=== PATIENT | female | born 1985 ===

== ENCOUNTER 2021-12-26 08:28 | Outpatient (REF) | payer OTHER, MEDICAID, SELFPAY ==
[2021-12-26 08:48] LABS: MANUAL DIFF FLAG NO
[2021-12-26 09:09] LABS: Basophils Percent Auto 0.4 % (0-2); Eosinophils Percent Auto 0.6 % (0-4); Hematocrit 38.4 % (37.0-47.0); Hemoglobin 12.8 g/dl (12.0-16.0); Imm Gran Abs Auto 0.02 X10*3/uL (0.00-0.03); Imm Gran Pct Auto 0.3 % (0.0-0.4); Lymphocytes Absolute Auto 1.7 X10*3/uL (1.2-4.9); Lymphocytes Percent Auto 24.9 % (20-40); Mean Corpuscular HGB Conc 33.3 g/dl (31.0-35.0); Mean Corpuscular Hemoglobin 28.8 pg (27.0-33.0); Mean Corpuscular Volume 86.5 fL (80.0-98.0); Mean Platelet Volume 10.2 fL (9.4-12.3); Monocytes Absolute Auto 0.5 X10*3/uL (0.1-1.2); Monocytes Percent Auto 7.7 % (2-11); Neutrophils Absolute Auto 4.5 x10*3/uL (2.0-8.3); Neutrophils Percent Auto 66.1 % (45-73); Platelet Count 251 X10*3/uL (160-400); Red Blood Count 4.44 X10*6/uL (4.20-5.50); Red Cell Distribution Width 13.5 % (11.0-16.0); White Blood Count 6.8 X10*3/uL (4.8-10.8)
[2021-12-26 09:40] LABS: Alanine Aminotransferase 29 U/L (0-31); Albumin Level 4.6 g/dL (3.5-5.0); Alkaline Phosphatase 82 U/L (39-117); Anion Gap 12 (12-20); Aspartate Amino Transferase 47 U/L (5-31); Bilirubin Total 0.6 mg/dL (0.0-1.0); Blood Urea Nitrogen 9 mg/dL (9-16); Calcium 9.3 mg/dL (8.4-10.2); Carbon Dioxide 24 mmol/L (22-29); Chloride 103 mmol/L (96-108); Cholesterol 163 mg/dL; Estimated Glomerular Filt Rate > 60; Glucose Fasting 114 mg/dL (60-99); HDL Cholesterol 43 mg/dL; LDL Cholesterol Calculated 103 mg/dl; Potassium 4.3 mmol/L (3.3-5.1); Sodium 135 mmol/L (135-145); Total Protein 7.9 g/dL (6.5-8.0); Triglycerides 85 mg/dL
[2021-12-26 10:04] LABS: Thyroid Stimulating Hormone 1.57 uIU/mL (0.32-4.0); Vitamin D 25-OH Total 24.9 ng/mL (>30)
== END 2021-12-26 08:29 | disposition home or self-care (01) ==
LOC: HO.LAB 08:28
PROVIDERS: PCP Internal Medicine; Visit Provider Internal Medicine
DX: Z00.00 Encounter for general adult medical examination without abnormal findings (principal); E55.9 Vitamin D deficiency, unspecified; E66.9 Obesity, unspecified; Z68.33 Body mass index [BMI] 33.0-33.9, adult
CPT/HCPCS: 36415; 80053; 80061; 82306; 84443; 85025

== ENCOUNTER 2022-09-16 07:41 | Observation (INO) | payer OTHER, MEDICAID, SELFPAY ==
[2022-09-16] VITALS (13 sets, daily range): BP systolic 120–147; BP diastolic 80–92; PULSE 93–125; RESP 14–18; TEMP 36.3–37.5; O2SAT 94–99; BMI 32.9
--- NOTE | ~2022-09-16 | US_ITS ---
EXAMINATION: US ABDOMEN LIMITED CLINICAL INFORMATION: Right upper quadrant pain. COMPARISON: None available. TECHNIQUE: Real-time imaging of the right upper quadrant abdominal viscera. FINDINGS: PANCREAS: Normal. LIVER: Liver echotexture is increased. There is low-attenuation in the liver adjacent to the gallbladder questionable for areas of focal fatty sparing versus possible reactive changes in the liver from cholecystitis. No focal hepatic lesion. There is no intrahepatic biliary duct dilatation seen. GALLBLADDER: The gallbladder is normal in size. There are gallstones. The gallbladder wall appears thickened and may be edematous. Gallbladder wall thickness measures up to 4 mm. The generation engineering technologist reports the patient is tender over the gallbladder. Question reactive changes in the liver/edema versus focal fatty sparing. COMMON BILE DUCT: Normal in caliber measuring 0.4 cm in diameter. RIGHT KIDNEY: Normal. No hydronephrosis. No renal calculi or focal parenchymal lesions. The kidney measures 11.7 cm in maximum dimension. FREE FLUID: None. US/US abdomen limited IMPRESSION: Gallstones and question acute cholecystitis. Fatty liver.
--- NOTE | 2022-09-16 07:55 | MHC.EDTECH ---
This PCT assisted PT to bed 17. PT changed into a pt gown and socks. PT vitals obtained and pt left in position of comfort with call mendoza by her side.
--- NOTE | 2022-09-16 08:14 | PC.NURSE ---
Pt a&ox4, airway open and patent, no difficulty/labored breathing. Pt lung sounds clr and equal bilaterally. Heart sounds normal. Bowel sounds present all arnold. Abdomen soft, tender. No edema.
--- NOTE | 2022-09-16 08:22 | ED.GENADULT ---
HPI - General Adult General Chief complaint: Abdominal Pain Stated complaint: R flank pain Time Seen by Provider: 09/16/22 08:22 Source: patient Mode of arrival: ambulatory Limitations: no limitations History of Present Illness HPI narrative: Patient is a 36 year old assigned female at with no reported medical history presenting to the emergency department today with right upper quadrant abdominal pain. Patient states that for the last 2 days she has had right upper quadrant abdominal pain that is significantly worse when she lays down and when she eats. Patient denies any dizziness, lightheadedness, fever, chills, blurry vision, double vision, loss of vision, chest pain, difficulty breathing, shortness of breath, back pain, night sweats, pain with urination, increased urinary frequency, increased urinary urgency, blood in her urine or stool, syncope or a near syncopal episode, recent trauma or falls, bowel incontinence, bladder incontinence, bowel retention, bladder retention, or any other complaints at this time. Onset (ago): day(s) (2) Location: abdomen Radiation: non-radiation Severity: mild Severity scale (1-10): 2 Quality: dull Pain Consistency: constant Relieving factors: none Exacerbating factors: none Associated symptoms: nausea/vomiting Treatments prior to arrival: none Related Data Home Medications Medication Instructions Recorded Confirmed No Known Home Meds 10/21/21 10/21/21 Allergies Allergy/AdvReac Type Severity Reaction Status Date / Time No Known Allergies Allergy Verified 10/21/21 08:54 Review of Systems Constitutional: Constitutional: Reports no additional constitutional complaints, Denies chills, Denies fever(s) and Denies night sweats Eyes: Eyes: Reports no additional eye complaints, Denies blurry vision, Denies change in vision, Denies diplopia, Denies eye discharge, Denies loss of vision and Denies eye pain ENT: Denies dizziness Cardiovascular: Cardiovascular: Reports no additional cardiovascular complaints, Denies chest pain, Denies lightheadedness, Denies Loss of Consciousness and Denies dyspnea Respiratory: Respiratory: Reports no additional respiratory complaints and Denies dyspnea Gastrointestinal: Gastrointestinal: Reports no additional gastrointestinal complaints, Reports abdominal pain, Denies melena, Denies hematochezia, Denies change in bowel habits, Denies change in stool character, Reports nausea and Denies vomiting Genitourinary: Genitourinary: Denies hematuria, Denies urinary frequency, Denies dysuria, Denies urinary incontinence, Denies urinary hesitancy and Denies urinary urgency Musculoskeletal: Musculoskeletal: Reports no additional musculoskeletal complaints, Denies numbness and Denies tingling Neurologic: Denies dizziness, Denies loss of vision, Denies numbness and Denies tingling Psychiatric: Psychiatric: Reports no additional psychiatric complaints Endocrine: Endocrine: Reports no additional endocrine complaints Hematologic/Lymphatic: Hematologic/Lymphatic: Reports no additional hematologic/lymphatic complaints Allergic/Immunologic: Allergic/Immunologic: Reports no additional allergic/immunologic complaints [facility] Past Medical History Attestation statement: The following information was validated with the patient. Source: old records reviewed and nursing notes reviewed Medical History Class 1 obesity with body mass index (BMI) of 33.0 to 33.9 in adult Neck pain Physical exam Surgical History No pertinent past surgical history Family History Family History Mother Lupus Father Skin cancer Family/Other Mental health disorder Social History Social History Housing: Apartment Alcohol intake: never Patient Tobacco Use Status: Never used Tobacco Smoked in Last 30 Days: No e-Cigarette/Vaping Use: Never Used Second Hand Smoke Exposure: No Use of substances other than those prescribed or required for medical reasons: No Advance Directives: No Advance Directives Information Provided: No Patient : No service: No Current occupational status: employed Current occupational exposures/hazards: No Cognitive needs: No Hearing needs: No Vision needs: No Physical Exam ED Vital Signs: Vital Signs - 24 hr 09/16/22 07:58 09/16/22 09:31 09/16/22 10:43 Temperature 98.5 F Pulse Rate 98 93 Respiratory Rate 16 16 14 Blood Pressure 131/80 127/85 Pulse Oximetry 99 97 Oxygen Delivery Method Room Air Room Air 09/16/22 12:04 09/16/22 13:51 Temperature 99.3 F Pulse Rate 105 H 99 Respiratory Rate 14 16 Blood Pressure 135/85 130/80 Pulse Oximetry 98 99 Oxygen Delivery Method Room Air Room Air BMI result Body Mass Index 32.9 Const General: cooperative, no acute distress, alert and awake Nutritional Appearance: well nourished Orientation/consciousness: patient oriented x3 Limitations: no limitations HENMT Head: Yes normal to inspection and Yes atraumatic Ears: hearing grossly normal bilaterally and external ears normal General nose exam: Normal external nose present, no nasal discharge noted and no epistaxis Face and sinus: Yes normal facial exam, No abrasion and No laceration Mouth: Normal oral and palatal mucosa present, no drooling and no muffled voice Eyes General: appearance normal, both eyes and all related structures Periorbital: periorbital findings normal Eyelids: Yes eyelids normal Conjunctivae: conjunctivae normal Pupils: Equal, round and reactive pupils present EOM: EOMs intact bilaterally Neck Neck: Yes normal visual inspection, Yes full ROM and Yes no lymphadenopathy Chest Chest palpation & inspection: normal inspection of the chest Resp Effort & Inspection: normal respiratory effort and able to speak in complete sentences Auscultation: clear to auscultation bilaterally Cardio Rate: regular rate Rhythm: regular rhythm GI Inspection: Yes normal to inspection Palpation (GI): Soft to palpation, not firm, Tenderness to palpation present (GI) in the RUQ and Lind's sign positive and no guarding Neuro General: patient oriented x3 and moves all extremities Cranial nerves: Yes Equal, round and reactive pupils present Cognition (Neuro): normal cognition Motor exam (neuro): 5/5 motor strength present throughout Sensory Exam: Normal double simultaneous stimulation for sensation Coordination: [id number] test normal Extrem General: Yes normal to inspection, Yes full ROM and Yes capillary refill normal Psych Appearance: grossly normal Mental Status: mental status grossly normal Affect: normal affect Attitude: cooperative Thought process: Normal thought process present Thought content: Normal thought content present Insight: Good insight present (Psych) Medications Administered Discontinued Medications Generic Name Dose Route Start Last Admin Trade Name Freq PRN Reason Stop Dose Admin Al Hydroxide/Mg Hydroxide 15 ml 09/16/22 08:25 09/16/22 09:33 Magnesium Hydrox/Alum Hydrox 30 Ml Oral.Susp PO 09/16/22 08:26 15 ml ONCE ONE Administration Morphine Sulfate 4 mg 09/16/22 08:25 09/16/22 09:31 Morphine Sulfate 4 Mg/Ml Cartridge IVPUSH 09/16/22 08:26 4 mg ONCE ONE Administration Protocol Ondansetron HCl 4 mg 09/16/22 08:25 09/16/22 09:30 Ondansetron Hcl 4 Mg/2 Ml Vial IVPUSH 09/16/22 08:26 4 mg ONCE ONE Administration Pantoprazole Sodium 40 mg 09/16/22 08:25 09/16/22 09:30 Pantoprazole Sodium 40 Mg/10 Ml Vial IVPUSH 09/16/22 08:26 40 mg ONCE ONE Administration Medical Decision Making Medical Decision Making [facility] Narrative: Patient is a 36 year old assigned female at with no reported medical history presenting to the emergency department today with right upper quadrant abdominal pain. Patient's physical exam showed tenderness to palpation of the right upper abdominal quadrant. Patient's blood work showed a slightly elevated WBC count but was otherwise unremarkable. Patient's urine showed no acute process. Patient's gallbladder US showed evidence of an acute cholecystitis. I spoke to the surgical team who agreed to admission. I explained my physical exam findings as well as all test results to the patient. I answered all questions asked by the patient. Patient received IV pain medication which she stated helped her symptoms significantly. Patient verbalized agreement and understanding with this treatment plan and admission. Differential Diagnosis Differential Diagnoses: The differential diagnosis associated with the presentation includes cholecystitis Consult Healthcare Provider Management of the patient was discussed with: Auto Transmission Technician (spoke to the surgical team per the MDM portion of this chart) Lab Data [facility] Lab Attestation statement: I reviewed the patient's lab results. 09/16/22 09:00 09/16/22 09:00 Labs: Lab Results 09/16/22 09/16/22 09/16/22 Range/Units 08:24 08:48 09:00 WBC 12.1 H (4.8-10.8) X10*3/uL RBC 4.55 (4.20-5.50) X10*6/uL Hgb 13.1 (12.0-16.0) g/dl Hct 39.4 (37.0-47.0) % MCV 86.6 (80.0-98.0) fL MCH 28.8 (27.0-33.0) pg MCHC 33.2 (31.0-35.0) g/dl RDW 13.3 (11.0-16.0) % Plt Count 286 (160-400) X10*3/uL MPV 10.4 (9.4-12.3) fL Immature Gran % (Auto) 0.3 (0.0-0.4) % Neut % (Auto) 84.9 H (45-73) % Lymph % (Auto) 9.2 L (20-40) % [place] % (Auto) 5.3 (2-11) % Eos % (Auto) 0.1 (0-4) % Baso % (Auto) 0.2 (0-2) % Lymph # (Auto) 1.1 L (1.2-4.9) X10*3/uL [place] # (Auto) 0.6 (0.1-1.2) X10*3/uL Eos # (Auto) 0.0 (0.0-0.4) X10*3/uL Baso # (Auto) 0.0 (0.0-0.2) X10*3/uL Abs Immat Gran (auto) 0.04 H (0.00-0.03) X10*3/uL Absolute Neuts (auto) 10.3 H (2.0-8.3) x10*3/uL Absolute Nucleated RBC 0.000 (0.0-0.012) X10*3/uL Nucleated RBC % (auto) 0.0 (0.0-0.2) /100WBC Sodium (135-145) mmol/L Potassium (3.3-5.1) mmol/L Chloride (96-108) mmol/L Carbon Dioxide (22-29) mmol/L Anion Gap (12-20) BUN (9-16) mg/dL Creatinine (0.5-1.4) mg/dL Estim Creat Clear Calc Estimated GFR Random Glucose (60-115) mg/dL Calcium (8.4-10.2) mg/dL Magnesium (1.6-2.6) mg/dL Total Bilirubin (0.0-1.0) mg/dL AST (5-31) U/L ALT (0-31) U/L Alkaline Phosphatase (39-117) U/L Total Protein (6.5-8.0) g/dL Albumin (3.5-5.0) g/dL Beta HCG, Quant mIU/mL Urine Color Yellow Urine Appearance Clear Urine pH 7.0 (5.0-9.0) Ur Specific [place] 1.015 (1.005-1.025) Urine Protein Trace (Neg-Trace) mg/dL Urine Glucose (UA) Negative (Negative) mg/dL Urine Ketones Negative (Negative) mg/dL Urine Blood Trace H (Negative) Urine Nitrite Negative (Negative) Ur Leukocyte Esterase Negative (Negative) Urine RBC 6-10 H (0-2) /HPF Urine WBC 0-5 (0-5) /HPF Ur Squamous Epith Cells 0-2 (0-2) /HPF Urine Bacteria None Seen (None Seen) Hyaline Casts 0-2 (0-2) /LPF COVID-19 (DAVIS) Negative (Negative) COVID-19 Clin Com See Note 09/16/22 09/16/22 Range/Units 09:00 09:00 WBC (4.8-10.8) X10*3/uL RBC (4.20-5.50) X10*6/uL Hgb (12.0-16.0) g/dl Hct (37.0-47.0) % MCV (80.0-98.0) fL MCH (27.0-33.0) pg MCHC (31.0-35.0) g/dl RDW (11.0-16.0) % Plt Count (160-400) X10*3/uL MPV (9.4-12.3) fL Immature Gran % (Auto) (0.0-0.4) % Neut % (Auto) (45-73) % Lymph % (Auto) (20-40) % [place] % (Auto) (2-11) % Eos % (Auto) (0-4) % Baso % (Auto) (0-2) % Lymph # (Auto) (1.2-4.9) X10*3/uL [place] # (Auto) (0.1-1.2) X10*3/uL Eos # (Auto) (0.0-0.4) X10*3/uL Baso # (Auto) (0.0-0.2) X10*3/uL Abs Immat Gran (auto) (0.00-0.03) X10*3/uL Absolute Neuts (auto) (2.0-8.3) x10*3/uL Absolute Nucleated RBC (0.0-0.012) X10*3/uL Nucleated RBC % (auto) (0.0-0.2) /100WBC Sodium 137 (135-145) mmol/L Potassium 4.2 (3.3-5.1) mmol/L Chloride 104 (96-108) mmol/L Carbon Dioxide 24 (22-29) mmol/L Anion Gap 13 (12-20) BUN 6 L (9-16) mg/dL Creatinine 0.83 (0.5-1.4) mg/dL Estim Creat Clear Calc 100.0 Estimated GFR > 60 Random Glucose 122 H (60-115) mg/dL Calcium 9.3 (8.4-10.2) mg/dL Magnesium 2.1 (1.6-2.6) mg/dL Total Bilirubin 0.8 (0.0-1.0) mg/dL AST 14 (5-31) U/L ALT 16 (0-31) U/L Alkaline Phosphatase 81 (39-117) U/L Total Protein 7.7 (6.5-8.0) g/dL Albumin 4.6 (3.5-5.0) g/dL Beta HCG, Quant < 2 mIU/mL Urine Color Urine Appearance Urine pH (5.0-9.0) Ur Specific [place] (1.005-1.025) Urine Protein (Neg-Trace) mg/dL Urine Glucose (UA) (Negative) mg/dL Urine Ketones (Negative) mg/dL Urine Blood (Negative) Urine Nitrite (Negative) Ur Leukocyte Esterase (Negative) Urine RBC (0-2) /HPF Urine WBC (0-5) /HPF Ur Squamous Epith Cells (0-2) /HPF Urine Bacteria (None Seen) Hyaline Casts (0-2) /LPF COVID-19 (DAVIS) (Negative) COVID-19 Clin Com Independent Interpretation I performed an independent interpretation of an: CT Scan Interpretation: My interpretation is in agreement with the radiologist's impression of this imaging study. EXAMINATION: US ABDOMEN LIMITED CLINICAL INFORMATION: Right upper quadrant pain. COMPARISON: None available. TECHNIQUE: Real-time imaging of the right upper quadrant abdominal viscera. FINDINGS: PANCREAS: Normal. LIVER: Liver echotexture is increased. There is low-attenuation in the liver adjacent to the gallbladder questionable for areas of focal fatty sparing versus possible reactive changes in the liver from cholecystitis. No focal hepatic lesion. There is no intrahepatic biliary duct dilatation seen. GALLBLADDER: The gallbladder is normal in size. There are gallstones. The gallbladder wall appears thickened and may be edematous. Gallbladder wall thickness measures up to 4 mm. The sonography technologist reports the patient is tender over the gallbladder. Question reactive changes in the liver/edema versus focal fatty sparing. COMMON BILE DUCT: Normal in caliber measuring 0.4 cm in diameter. RIGHT KIDNEY: Normal. No hydronephrosis. No renal calculi or focal parenchymal lesions. The kidney measures 11.7 cm in maximum dimension. FREE FLUID: None. US/US abdomen limited IMPRESSION: Gallstones and question acute cholecystitis. Fatty liver. Dictated By: Vee Loo MD Signed By: Electronically signed by Vee Loo MD 09/16/22 5562 Critical Care Time Critical Care Time Critical Care Time: Yes Total Critical Care Time: 30 Attestation: I spent 30 minutes of Critical Care Time with this patient. This does not include time spent on separately reported billable procedures. Discharge Plan Discharge Clinical Impression: Cholecystitis Patient Disposition: Admitted As Inpatient Prescriptions: No Action No Known Home Meds
[2022-09-16 08:33] LABS: Appearance Urine Clear; Color Urine Yellow; Glucose Urine UA Negative (Negative); Leukocyte Esterase Urine Negative (Negative); Nitrite Urine Negative (Negative); Specific Gravity - Urine 1.015 (1.005-1.025); UMIC TRIGGER UACC YES; Urine Blood Trace (Negative); Urine Ketones Negative (Negative); Urine Protein Trace mg/dL (Neg-Trace)
[2022-09-16 08:38] LABS: Bacteria Urine None Seen (None Seen); Hyaline Casts Urine 0-2 /LPF (0-2); Squamous Epithelial Cell Urine 0-2 /HPF (0-2); WBC Urine 0-5 /HPF (0-5)
[2022-09-16 09:04] LABS: MANUAL DIFF FLAG NO
[2022-09-16 09:15] LABS: IDNOW Serial# BCCEAD1C
[2022-09-16 09:16] LABS: COVID-19 Test Negative (Negative)
[2022-09-16 09:21] LABS: Alanine Aminotransferase 16 U/L (0-31); Albumin Level 4.6 g/dL (3.5-5.0); Alkaline Phosphatase 81 U/L (39-117); Anion Gap 13 (12-20); Aspartate Amino Transferase 14 U/L (5-31); Bilirubin Total 0.8 mg/dL (0.0-1.0); Blood Urea Nitrogen 6 mg/dL (9-16); Calcium 9.3 mg/dL (8.4-10.2); Carbon Dioxide 24 mmol/L (22-29); Chloride 104 mmol/L (96-108); Estimated Glomerular Filt Rate > 60; Glucose Random 122 mg/dL (60-115); Magnesium 2.1 mg/dL (1.6-2.6); Potassium 4.2 mmol/L (3.3-5.1); Sodium 137 mmol/L (135-145); Total Protein 7.7 g/dL (6.5-8.0)
[2022-09-16 09:27] LABS: Basophils Percent Auto 0.2 % (0-2); Eosinophils Percent Auto 0.1 % (0-4); Hematocrit 39.4 % (37.0-47.0); Hemoglobin 13.1 g/dl (12.0-16.0); Imm Gran Abs Auto 0.04 X10*3/uL (0.00-0.03); Imm Gran Pct Auto 0.3 % (0.0-0.4); Lymphocytes Absolute Auto 1.1 X10*3/uL (1.2-4.9); Lymphocytes Percent Auto 9.2 % (20-40); Mean Corpuscular HGB Conc 33.2 g/dl (31.0-35.0); Mean Corpuscular Hemoglobin 28.8 pg (27.0-33.0); Mean Corpuscular Volume 86.6 fL (80.0-98.0); Mean Platelet Volume 10.4 fL (9.4-12.3); Monocytes Absolute Auto 0.6 X10*3/uL (0.1-1.2); Monocytes Percent Auto 5.3 % (2-11); Neutrophils Absolute Auto 10.3 x10*3/uL (2.0-8.3); Neutrophils Percent Auto 84.9 % (45-73); Platelet Count 286 X10*3/uL (160-400); Red Blood Count 4.55 X10*6/uL (4.20-5.50); Red Cell Distribution Width 13.3 % (11.0-16.0); White Blood Count 12.1 X10*3/uL (4.8-10.8)
[2022-09-16 09:30] LABS: HCG Quantitative < 2 mIU/mL
[2022-09-16] MEDS: ondansetron HCL 4 MG/2 ML VIAL IVPUSH (09:30)
[2022-09-16] MEDS: Pantoprazole Sodium 40 MG/10 ML VIAL IVPUSH (09:30)
[2022-09-16] MEDS: Morphine Sulfate 4 MG/ML CARTRIDGE IVPUSH ×2 (09:31→14:35)
[2022-09-16] MEDS: Magnesium Hydrox/Alum Hydrox 30 ML ORAL.SUSP 15 ML PO (09:33)
--- NOTE | 2022-09-16 14:59 | MHC.SHP ---
Pre-Procedural Eval Section A Date of Service: 09/16/22 The patient is an INPATIENT: Yes Changes since office visit: No Cold of Flu in the past 2 weeks, No New Medical Problems, No Changes in Medication and No Patient answered all questions Section B Chief Complaint: ACUTE CHOLECYSTITIS Allergies: Allergies Allergy/AdvReac Type Severity Reaction Status Date / Time No Known Allergies Allergy Verified 10/21/21 08:54 Plan I have reviewed the history and physical and performed a pertinent physical examination on my patient. No changes have occurred unless specified. Time Spent With Patient Time: Total time managing care of this patient today ____ minutes.
--- NOTE | 2022-09-16 15:01 | PM.HPGS ---
History of Present Illness History of Present Illness Date of Service: 09/16/22 Chief complaint: ACUTE CHOLECYSTITIS Narrative: Meli Batista is a 36 year old female who presented with RUQ abd pain. She developed acute onset of RUQ pain Thursday night. She described the pain as sharp and at first was intermittent and then became constant. It radiated to her right upper back. It gradually worsened in severity and she developed nausea and had one episode of vomiting this morning and decided to seek care in the ED. She denies provoking or alleviating factors. She reports a similar episode of pain 2 months ago which resolved on its own. She denies fevers, chills, change in skin or urine color. She has hx of 2 c sections. Work up in the ED included ABD US which showed gallstones, gallbladder wall thickening with tenderness over the gallbladder with the ultrasound probe. She has a leukocytosis of 12.1. BMP, LFTs WNL. She feels marginally improved right now following pain medication. Review of Systems Constitutional: Constitutional: Denies chills, Denies fever(s) and Denies malaise ENT: Denies dizziness Cardiovascular: Cardiovascular: Denies chest pain, Denies palpitations and Denies dyspnea Respiratory: Respiratory: Denies cough and Denies dyspnea Gastrointestinal: Gastrointestinal: Reports as per HPI and Denies change in stool character Genitourinary: Genitourinary: Denies hematuria and Denies dysuria Integumentary/Breasts: Skin/Breast: Denies rash and Denies jaundice Neurologic: Denies dizziness Endocrine: Endocrine: Denies palpitations [facility] Past Medical History Medical History (Updated 09/16/22 @ 15:17 by Katlyn Urbina PA-C) Class 1 obesity with body mass index (BMI) of 33.0 to 33.9 in adult Neck pain Physical exam Family History Family History Mother Lupus Father Skin cancer Family/Other Mental health disorder Surgical History Surgical History (Updated 09/16/22 @ 15:14 by Katlyn Urbina PA-C) History of section No pertinent past surgical history Social History Social History Housing: Apartment Alcohol intake: never Patient Tobacco Use Status: Never used Tobacco e-Cigarette/Vaping Use: Never Used Second Hand Smoke Exposure: No service: No Current occupational status: employed Current occupational exposures/hazards: No Cognitive needs: No Hearing needs: No Vision needs: No Meds Allergies Allergy/AdvReac Type Severity Reaction Status Date / Time No Known Allergies Allergy Verified 10/21/21 08:54 Active Medications: Current Medications Acetaminophen (Acetaminophen 325 Mg Tablet) 650 mg PO Q6H PRN PRN Reason: Pain, Mild (Pain Scale 1-3) Sodium Chloride (Ns) 1,000 mls @ 100 mls/hr IVCONT .Q10H [facility] Cefotetan Disodium 2 gm/ (Sodium Chloride) 50 mls @ 100 mls/hr IV PREOP ONE Stop: 09/16/22 15:10 Morphine Sulfate (Morphine Sulfate 4 Mg/Ml Cartridge) 4 mg IVPUSH Q4H PRN; Protocol PRN Reason: Pain, Severe (Pain Scale 7-10) Ondansetron HCl (Ondansetron Hcl 4 Mg/2 Ml Vial) 4 mg IVPUSH Q8H PRN PRN Reason: Nausea and Vomiting Oxycodone HCl (Oxycodone Hcl Immed Release 5 Mg Tablet) 5 mg PO Q6H PRN PRN Reason: Pain, Severe (Pain Scale 7-10) Pharmacy Consult (Consult Rx Perform Med Rec) 1 each MISCELLANE ONCE PRN PRN Reason: Consult order Sodium Chloride (0.9 % Sodium Chloride Flush 3 Ml Syringe) 3 ml IVFLUSH QSHIFT [facility] Home Medications Medication Instructions Recorded Confirmed Last Taken Type No Known Home Meds 10/21/21 10/21/21 Unknown History Physical Exam Vital Signs: Vital Signs: Last Vital Signs Temp 99.3 F 09/16/22 13:51 Pulse 99 09/16/22 13:51 Resp 16 09/16/22 13:51 BP 130/80 09/16/22 13:51 Pulse Ox 99 09/16/22 13:51 O2 Del Method Room Air 09/16/22 13:51 BMI result Body Mass Index 32.9 Const: General: comfortable, no acute distress and alert Orientation/consciousness: patient oriented x3 Resp: Effort & Inspection: normal respiratory effort Cardio: Rate: regular rate GI: Inspection: Yes normal to inspection and No distended Palpation (GI): Soft to palpation, Tenderness to palpation present (GI) in the RUQ and Lind's sign positive, no guarding and not rigid Percussion: Yes normal to percussion Skin: General skin exam: no rashes or lesions noted Neuro: General: patient oriented x3 and moves all extremities Results Results Labs: Short CBC 09/16/22 Range/Units 09:00 WBC 12.1 H (4.8-10.8) X10*3/uL Hgb 13.1 (12.0-16.0) g/dl Hct 39.4 (37.0-47.0) % Plt Count 286 (160-400) X10*3/uL BMP 09/16/22 09:00 Sodium 137 Potassium 4.2 Chloride 104 Carbon Dioxide 24 BUN 6 L Creatinine 0.83 Calcium 9.3 Liver Function 09/16/22 Range/Units 09:00 Total Bilirubin 0.8 (0.0-1.0) mg/dL AST 14 (5-31) U/L ALT 16 (0-31) U/L Alkaline Phosphatase 81 (39-117) U/L Albumin 4.6 (3.5-5.0) g/dL Urine 09/16/22 Range/Units 08:24 Urine Color Yellow Urine Appearance Clear Urine pH 7.0 (5.0-9.0) Ur Specific [place] 1.015 (1.005-1.025) Urine Protein Trace (Neg-Trace) mg/dL Urine Glucose (UA) Negative (Negative) mg/dL Assessment and Plan (1) Acute calculous cholecystitis: Status: Acute Plan 36 year old female with RUQ pain since Thursday with RUQ tenderness with positive lind sign on exam, leukocytosis, and gallstones and gallbladder wall thickening on ABD US, consistent with acute cholecystitis. She was admitted to the surgical service for further treatment of the acute cholecystitis. Treatment options were discussed and it was recommended to proceed with laparoscopic cholecystectomy, possible open. Technique of the procedure, risks including infection, bleeding, injury to surrounding organs such as liver, bowel, vasculature, bile ducts, and benefits and alternatives were discussed. She agrees to proceed with surgery. She is added onto the OR schedule for today. She is kept NPO, on IVF and PRN analgesics as needed. All questions were answered. Time Spent With Patient Time: Total time managing care of this patient today ____ minutes. Quality Stroke Does the patient have a stroke diagnosis?: No VTE Prior VTE?: No VTE Risk Level:: Surgical - low VTE Device Contraindication: N/A - Device Ordered VTE Drug Contraindication: Treatment Not Indicated Procedures Date of Service Date of Service: 09/16/22
--- NOTE | 2022-09-16 15:08 | HO.ANESPROP2 ---
[facility] Active Problems Active Problems: All Active Problems (Updated 09/16/22 @ 14:46 by MIKE Perdue) Cholecystitis (Acute) Neck pain (Acute) Class 1 obesity with body mass index (BMI) of 33.0 to 33.9 in adult (Acute) Physical exam (Acute) Past Medical History Medical History Class 1 obesity with body mass index (BMI) of 33.0 to 33.9 in adult Neck pain Physical exam Family History Family History Mother Lupus Father Skin cancer Family/Other Mental health disorder Family history of problems with anesthesia: No Surgical History Surgical History No pertinent past surgical history History of Problems with Anesthesia: No Social History Social History Housing: Apartment Alcohol intake: never Patient Tobacco Use Status: Never used Tobacco Smoked in Last 30 Days: No e-Cigarette/Vaping Use: Never Used Second Hand Smoke Exposure: No Use of substances other than those prescribed or required for medical reasons: No Advance Directives: No Advance Directives Information Provided: No Patient : No service: No Current occupational status: employed Current occupational exposures/hazards: No Cognitive needs: No Hearing needs: No Vision needs: No Meds Allergies Allergy/AdvReac Type Severity Reaction Status Date / Time No Known Allergies Allergy Verified 10/21/21 08:54 Active Medications: Current Medications Acetaminophen (Acetaminophen 325 Mg Tablet) 650 mg PO Q6H PRN PRN Reason: Pain, Mild (Pain Scale 1-3) Sodium Chloride (Ns) 1,000 mls @ 100 mls/hr IVCONT .Q10H JOSEPH Cefotetan Disodium 2 gm/ (Sodium Chloride) 50 mls @ 100 mls/hr IV PREOP ONE Stop: 09/16/22 15:10 Morphine Sulfate (Morphine Sulfate 4 Mg/Ml Cartridge) 4 mg IVPUSH Q4H PRN; Protocol PRN Reason: Pain, Severe (Pain Scale 7-10) Ondansetron HCl (Ondansetron Hcl 4 Mg/2 Ml Vial) 4 mg IVPUSH Q8H PRN PRN Reason: Nausea and Vomiting Oxycodone HCl (Oxycodone Hcl Immed Release 5 Mg Tablet) 5 mg PO Q6H PRN PRN Reason: Pain, Severe (Pain Scale 7-10) Pharmacy Consult (Consult Rx Perform Med Rec) 1 each MISCELLANE ONCE PRN PRN Reason: Consult order Sodium Chloride (0.9 % Sodium Chloride Flush 3 Ml Syringe) 3 [facility] Home Medications Medication Instructions Recorded Confirmed Last Taken Type No Known Home Meds 10/21/21 10/21/21 Unknown History Exam Exam Date and Time: September 16, 2022 1508 Height,Weight and Vital Signs: Height 5 ft 4 in Weight 87.09 kg Last Vital Signs Temp 99.3 F 09/16/22 13:51 Pulse 99 09/16/22 13:51 Resp 16 09/16/22 13:51 BP 130/80 09/16/22 13:51 Pulse Ox 99 09/16/22 13:51 O2 Del Method Room Air 09/16/22 13:51 Pertinent Lab Results Pertinent Lab Results: Laboratory Tests 09/16/22 09/16/22 09/16/22 08:24 08:48 09:00 WBC 12.1 H RBC 4.55 Hgb 13.1 Hct 39.4 MCV 86.6 MCH 28.8 MCHC 33.2 RDW 13.3 Plt Count 286 MPV 10.4 Immature Gran % (Auto) 0.3 Neut % (Auto) 84.9 H Lymph % (Auto) 9.2 L [place] % (Auto) 5.3 Eos % (Auto) 0.1 Baso % (Auto) 0.2 Lymph # (Auto) 1.1 L [place] # (Auto) 0.6 Eos # (Auto) 0.0 Baso # (Auto) 0.0 Abs Immat Gran (auto) 0.04 H Absolute Neuts (auto) 10.3 H Absolute Nucleated RBC 0.000 Nucleated RBC % (auto) 0.0 Sodium Potassium Chloride Carbon Dioxide Anion Gap BUN Creatinine Estim Creat Clear Calc Estimated GFR Random Glucose Calcium Magnesium Total Bilirubin AST ALT Alkaline Phosphatase Total Protein Albumin Beta HCG, Quant Urine Color Yellow Urine Appearance Clear Urine pH 7.0 Ur Specific [place] 1.015 Urine Protein Trace Urine Glucose (UA) Negative Urine Ketones Negative Urine Blood Trace H Urine Nitrite Negative Ur Leukocyte Esterase Negative Urine RBC 6-10 H Urine WBC 0-5 Ur Squamous Epith Cells 0-2 Urine Bacteria None Seen Hyaline Casts 0-2 COVID-19 (DAVIS) Negative COVID-19 Clin Com See Note 09/16/22 09/16/22 09:00 09:00 WBC RBC Hgb Hct MCV MCH MCHC RDW Plt Count MPV Immature Gran % (Auto) Neut % (Auto) Lymph % (Auto) [place] % (Auto) Eos % (Auto) Baso % (Auto) Lymph # (Auto) [place] # (Auto) Eos # (Auto) Baso # (Auto) Abs Immat Gran (auto) Absolute Neuts (auto) Absolute Nucleated RBC Nucleated RBC % (auto) Sodium 137 Potassium 4.2 Chloride 104 Carbon Dioxide 24 Anion Gap 13 BUN 6 L Creatinine 0.83 Estim Creat Clear Calc 100.0 Estimated GFR > 60 Random Glucose 122 H Calcium 9.3 Magnesium 2.1 Total Bilirubin 0.8 AST 14 ALT 16 Alkaline Phosphatase 81 Total Protein 7.7 Albumin 4.6 Beta HCG, Quant < 2 Urine Color Urine Appearance Urine pH Ur Specific [place] Urine Protein Urine Glucose (UA) Urine Ketones Urine Blood Urine Nitrite Ur Leukocyte Esterase Urine RBC Urine WBC Ur Squamous Epith Cells Urine Bacteria Hyaline Casts COVID-19 (DAVIS) COVID-19 Clin Com Airway Mallampati Class: III TM Dist: >3cm Neck ROM: Full Assessment and Plan Assessment Anesthesia Assessment: Anesthesia Plan Discussed and Chart Reviewed Final Anesthetic Review Family History of Problems with Anesthesia: No History of Problems with Anesthesia: No ASA Class: II and Emergency Final Preanesthetic Review: No Changes in Pt Med Stat, Meds/Allgs Chart Reviewed, Consent Obtained/Reviewed and Anes Risks/Benef Reviewed Patient Risk: Intermediate Procedure Risk: Intermediate Anesthetic Plan Anesthetic Plan: GA Disposition: Standard PACU
--- NOTE | 2022-09-16 15:12 | PC.NURSE ---
report received from NAYELI Pastor As this RN was taking report, OR staff came to take pt. This RN called report to PACU.
--- NOTE | 2022-09-16 17:02 | P.OP_ITS ---
Operative Note Operative Note Date of Service: 09/16/22 Narrative: Preoperative diagnosis: [] acute cholecystitis Postop diagnosis: [] acute phlegmonous cholecystitis Procedure [] laparoscopic cholecystectomy Surgeon: Paul Harkins Clinical Sales Consultant: [] Carlitos arreguin Type of Anesthesia: [] general Indication for surgery: [] symptomatic right upper quadrant gallbladder pain Findings: [] phlegmonous, edematous, turgid, markedly intrahepatic gallbladder. Multiple gallstones in the gallbladder. Omental lesions tothe gallbladder Patient was brought to the operating room, placed on the operating table in a supine position, and after an adequate level of general anesthesia was induced, the patient's abdomen which was moderately corpulent was prepped and draped in usual sterile fashion. Using an infraumbilical curvilinear incision, Wesley technique was used to infiltrate the abdominal cavity to 15 mm of CO2. Upper midline and subcostal ports were placed under direct laparoscopic view, and the patient placed in reverse Trendelenburg position, and tilted to the left. The markedly phlegmonous, edematous gallbladder had to be decompressed with an aspirating device because it was unable to be grasped otherwise. Laparoscopic graspers were used to retract the gallbladder superiorly and laterally and the omental adhesions were swept off the gallbladder and the hilum approached. The cystic duct artery and cystic duct were reach identified, circumferentially skeletonized, and each traced directly to the gallbladder. Critical view was obtained. Each was clipped proximally x2, distally x1, and transected. Gallbladder which was very intrahepatic was then cauterized from the gallbladder fossa using electro Bovie. Specimen was placed in an Endo-Catch bag, and retrieved through the umbilical port. Operative site an abdominal cavity were copiously irrigated and secured for hemostasis. All ports were removed under direct laparoscopic view. Wounds were closed in the following manner; umbilical wound has fascia reapproximated using interrupted 0 Vicryl sutures. Skin was were closed using subcuticular 4-0 Vicryl sutures followed by Steri-Strips and sterile dressings. Wounds were infiltrated with 0.5% Marcaine at completion. Sponge, needle, and instrument counts were reported to be correct. Patient tolerated procedure well emerged anesthesia stable condition. EBL minimal
[2022-09-16] MEDS: 0.9 % Sodium Chloride 1,000 ML 100 ML IVCONT (18:28)
[2022-09-16] MEDS: oxyCODONE HCl Immed Release 5 MG TABLET PO (21:47)
[2022-09-16] MEDS: Acetaminophen 325 MG TABLET 650 MG PO (21:48)
[2022-09-16] MEDS: 0.9 % Sodium Chloride Flush 3 ML SYRINGE IVFLUSH (21:49)
[2022-09-17] VITALS: BP 124/77; PULSE 92; RESP 16; TEMP 36.4; O2SAT 97
[2022-09-17 03:30] VITALS: BP 118/68; PULSE 98; RESP 16; TEMP 36; O2SAT 98
[2022-09-17] MEDS: oxyCODONE HCl Immed Release 5 MG TABLET PO (04:35)
[2022-09-17 07:10] VITALS: BP 121/74; PULSE 88; RESP 16; TEMP 37.1; O2SAT 97
--- NOTE | 2022-09-17 08:40 | PM.PNGS ---
Subjective Subjective Date of Service: 09/17/22 Interval history: Feeling well this morning. Tolerating diet without N/V. Having some gas pains, incisional pain mild and she is comfortable. OOB and ambulating. Physical Exam Vital Signs: Vital Signs: Last Vital Signs Temp 98.7 F 09/17/22 07:10 Pulse 88 09/17/22 07:10 Resp 16 09/17/22 07:10 BP 121/74 09/17/22 07:10 Pulse Ox 97 09/17/22 07:10 O2 Del Method Room Air 09/17/22 07:10 O2 Flow Rate 2 09/16/22 18:04 BMI result Body Mass Index 32.9 Const: General: comfortable, no acute distress and alert Orientation/consciousness: patient oriented x3 Resp: Effort & Inspection: normal respiratory effort GI: Inspection: No distended and Yes incision (dressings c/d/i) Palpation (GI): Soft to palpation, Tenderness to palpation present (GI) (mild incisional), no guarding and not rigid Percussion: Yes normal to percussion Skin: General skin exam: no rashes or lesions noted Neuro: General: patient oriented x3 and moves all extremities Objective Data Active Medications Acetaminophen (Acetaminophen 325 Mg Tablet) 650 mg PO Q6H PRN PRN Reason: Pain, Mild (Pain Scale 1-3) Last Admin: 09/16/22 21:48 Dose: 650 mg Documented By: HARIKA Sodium Chloride (Ns) 1,000 mls @ 100 mls/hr IVCONT .Q10H JOSEPH Last Infusion: 09/17/22 04:36 Dose: 0 mls/hr Documented By: HARIKA Morphine Sulfate (Morphine Sulfate 4 Mg/Ml Cartridge) 4 mg IVPUSH Q4H PRN; Protocol PRN Reason: Pain, Severe (Pain Scale 7-10) Ondansetron HCl (Ondansetron Hcl 4 Mg/2 Ml Vial) 4 mg IVPUSH Q8H PRN PRN Reason: Nausea and Vomiting Ondansetron HCl (Ondansetron Hcl 4 Mg/2 Ml Vial) 4 mg IVPUSH ONCE PRN PRN Reason: Nausea and Vomiting Oxycodone HCl (Oxycodone Hcl Immed Release 5 Mg Tablet) 5 mg PO Q6H PRN PRN Reason: Pain, Severe (Pain Scale 7-10) Last Admin: 09/17/22 04:35 Dose: 5 mg Documented By: HARIKA Pharmacy Consult (Consult Rx Perform Med Rec) 1 each MISCELLANE ONCE PRN PRN Reason: Consult order Sodium Chloride (0.9 % Sodium Chloride Flush 3 Ml Syringe) 3 ml IVFLUSH QSHIFT [facility] Last Admin: 09/17/22 07:09 Dose: Not Given Documented By: OLGA Non-Admin Reason: IV Running Labs 09/16/22 09:00 09/16/22 09:00 Labs: Laboratory Results - last 24 hr 09/16/22 09/16/22 09/16/22 08:24 08:48 09:00 MCV 86.6 MCH 28.8 MCHC 33.2 RDW 13.3 Plt Count 286 MPV 10.4 Immature Gran % (Auto) 0.3 Neut % (Auto) 84.9 H Lymph % (Auto) 9.2 L [place] % (Auto) 5.3 Eos % (Auto) 0.1 Baso % (Auto) 0.2 Lymph # (Auto) 1.1 L [place] # (Auto) 0.6 Eos # (Auto) 0.0 Baso # (Auto) 0.0 Abs Immat Gran (auto) 0.04 H Absolute Neuts (auto) 10.3 H Absolute Nucleated RBC 0.000 Nucleated RBC % (auto) 0.0 Anion Gap Estim Creat Clear Calc Estimated GFR Random Glucose Calcium Magnesium Total Bilirubin AST ALT Alkaline Phosphatase Total Protein Albumin Beta HCG, Quant Urine RBC 6-10 H Urine WBC 0-5 Ur Squamous Epith Cells 0-2 Urine Bacteria None Seen Hyaline Casts 0-2 COVID-19 (DAVIS) Negative COVID-19 Clin Com See Note 09/16/22 09/16/22 09:00 09:00 MCV MCH MCHC RDW Plt Count MPV Immature Gran % (Auto) Neut % (Auto) Lymph % (Auto) White % (Auto) Eos % (Auto) Baso % (Auto) Lymph # (Auto) [place] # (Auto) Eos # (Auto) Baso # (Auto) Abs Immat Gran (auto) Absolute Neuts (auto) Absolute Nucleated RBC Nucleated RBC % (auto) Anion Gap 13 Estim Creat Clear Calc 100.0 Estimated GFR > 60 Random Glucose 122 H Calcium 9.3 Magnesium 2.1 Total Bilirubin 0.8 AST 14 ALT 16 Alkaline Phosphatase 81 Total Protein 7.7 Albumin 4.6 Beta HCG, Quant < 2 Urine RBC Urine WBC Ur Squamous Epith Cells Urine Bacteria Hyaline Casts COVID-19 (DAVIS) COVID-19 Clin Com Procedures Date of Service Date of Service: 09/17/22 Progress Note: A&P Assessment and plan (1) Acute calculous cholecystitis: Status: Acute (2) S/P laparoscopic cholecystectomy: Status: Acute Plan 36 year old female admitted for acute cholecystitis now POD #1 s/p lap CCY. She is doing well post op and tolerating solid diet with good pain control. VSS. Abd exam very benign with appropriate post op tenderness, c/d/i dressings. Feels ready for discharge. Stable for discharge to home today. F/u in office in [address] Harkins. Time Spent With Patient Time: Total time managing care of this patient today ____ minutes. Quality Stroke Does the patient have a stroke diagnosis?: No VTE Prior VTE?: No VTE Risk Level:: Surgical - low VTE Device Contraindication: N/A - Device Ordered VTE Drug Contraindication: Treatment Not Indicated
--- NOTE | 2022-09-17 14:07 | HO.POSTANES ---
Post Anesthesia Evaluation Post Anesthesia Evaluation Vital Signs: Vital Signs Temp Pulse Resp BP Pulse Ox O2 Del Method 09/17/22 07:10 98.7 F 88 16 121/74 97 Room Air 09/17/22 03:30 96.8 F 98 16 118/68 98 Room Air Anesthesia: General Endotracheal-GETA Mental Status: Awake Pain Control: Satisfactory Nausea/Vomiting: None Hydration: Adequate Anesthesia-Related Issues: No Anes. Related Issues
--- NOTE | 2022-09-18 07:41 | PM.DS ---
DS: Providers Provider Date of Service: 09/17/22 Date of admission: 09/16/22 14:41 Primary care physician: Khadra Tucker MD Attending physician on admission: Trav Harkins DS: Diagnosis Discharge Diagnosis (1) Acute calculous cholecystitis: Status: Acute (2) S/P laparoscopic cholecystectomy: Status: Acute DS: Summary Hospital Course Hospital Course: HPI AT ADMISSION: Meli Batista is a 36 year old female who presented with RUQ abd pain. She developed acute onset of RUQ pain Thursday night. She described the pain as sharp and at first was intermittent and then became constant. It radiated to her right upper back. It gradually worsened in severity and she developed nausea and had one episode of vomiting this morning and decided to seek care in the ED. She denies provoking or alleviating factors. She reports a similar episode of pain 2 months ago which resolved on its own. She denies fevers, chills, change in skin or urine color. She has hx of 2 c sections. Work up in the ED included ABD US which showed gallstones, gallbladder wall thickening with tenderness over the gallbladder with the ultrasound probe. She has a leukocytosis of 12.1. BMP, LFTs WNL. She feels marginally improved right now following pain medication. HOSPITAL COURSE: She was admitted to the surgical service for further treatment of acute cholecystitis. It was recommended to proceed with laparoscopic cholecystectomy, possible open. She elected to proceed and was added onto the OR schedule for that day. On 09/16/22, a laparoscopic cholecystectomy was performed by Dr. Harkins without immediate complication. The patient tolerated the procedure well and was admitted to the medical/surgical floor for observation. She had an uncomplicated recovery course. On POD #1, she felt improved with mild incisional soreness and adequate pain control. She was tolerating a solid diet without nausea or vomiting. She was ambulating without difficulty. She had a benign abd exam with clean/intact dressings. She felt ready for discharge. She was discharged to home on 09/17/22 in stable condition. Status at Discharge Functional status at discharge: independent ambulation Overall status at discharge: patient is progressing back to baseline Time Spent with Patient Time attestation: Total time managing care of this patient today ____ minutes. Discharge coordination time: Less than 30 minutes Quality: Safe Use of Opioids Does Pt have an Active Cancer Diagnosis on the Problem List?: No Quality: Stroke Does the patient have a stroke diagnosis?: No Physical Exam Vital Signs: Vital Signs: Last Vital Signs Temp 98.7 F 09/17/22 07:10 Pulse 88 09/17/22 07:10 Resp 16 09/17/22 07:10 BP 121/74 09/17/22 07:10 Pulse Ox 97 09/17/22 07:10 O2 Del Method Room Air 09/17/22 07:10 O2 Flow Rate 2 09/16/22 18:04 BMI result Body Mass Index 32.9 Const: General: comfortable, no acute distress and alert Orientation/consciousness: patient oriented x3 Resp: Effort & Inspection: normal respiratory effort GI: Inspection: No distended and Yes incision (dressings c/d/i) Palpation (GI): Soft to palpation, Tenderness to palpation present (GI) (mild), no guarding and not rigid Percussion: Yes normal to percussion Skin: General skin exam: no rashes or lesions noted and no jaundice Neuro: General: patient oriented x3 and moves all extremities DS: Data Data Completed and Pending Pending studies at discharge: Pending at discharge 09/16/22 17:17 Surgical [PTH] Routine Discharge Plan Discharge Patient Disposition: Home, Self-Care Discharge Diagnosis: acute cholecystitis s/p laparoscopic cholecystectomy Referrals: Khadra Lopez MD [Primary Care Provider] - 1 Week Trav Harkins MD [Physician] - 1 Week Discharge Medications: New docusate sodium [Colace] 100 mg capsule 100 mg PO BID PRN (Reason: constipation) Qty: 30 0RF oxycodone 5 mg tablet 5 mg PO Q4H PRN (Reason: pain (scale score 7-10)) Qty: 20 0RF Rx Instructions: Partial Fill upon patient request. Discharge Orders: Discharge Order (Routine); Ordered 09/17/22 Ordered By: Katlyn Urbina Diet: Low fat, low cholesterol Activity on Discharge: No heavy lifting Stand Alone Forms: Patient Portal Discharge page Activity Restrictions/Additional Instructions: Apply an ice pack for short intervals (20 minutes on, followed by at least 20 minutes off) for the first 2 days. Do not apply heat. Do not use creams, lotions, or topical antibiotics. These can cause infection or allergic reaction. Ok to shower 48 hours after your surgery. Remove dressings in 2 days and replace as needed. You have steri strips (small white cloth strips) covering your incision- these will fall off ~1 week. Follow up in office with Dr. Harkins in 1 week. ([phone]) No heavy lifting (>10lbs) or strenuous activity! Call Your Doctor If: -Your temperature exceeds 101.5? F -You experience excessive pain or swelling -You have an unexpected reaction to medication -You have excessive bleeding -You experience continued vomiting/nausea -Your incision begins to separate -Your incision shows signs of infection such as increased redness, swelling, excessive pain, drainage (light blood or clear fluid is normal) or heat Care Plan Goals: Return to baseline health and resume normal activities following recovery period. Health Concerns: acute cholecystitis Plan of Treatment: s/p laparoscopic cholecystectomy f/u in office in 1 week Assessment: Doing well post op Discharge Date/Time: 09/17/22 10:59
== END 2022-09-17 10:59 | disposition home or self-care (01) ==
LOC: HO.ED 14:46 → HO.EDOVER 14:53 → HO.S3 17:42
PROVIDERS: Physician Assistant Medical; Surgery; Admitting Provider Physician Assistant Surgical; Emergency Provider Emergency Medicine Emergency Medical Services; PCP Internal Medicine; Visit Provider Physician Assistant Surgical
PROC: 0FT44ZZ Resection of Gallbladder, Percutaneous Endoscopic Approach (ICD-10-PCS; CPT 47562; principal; 2022-09-16 15:30)
DX: K80.00 Calculus of gallbladder with acute cholecystitis without obstruction (principal); R10.11 Right upper quadrant pain
CPT/HCPCS: 47562; 36415; 76705; 80053; 81001; 83735; 84702; 85025; 87635; 88304; 96361; 96374; 96375; 96376; 99221; 99284; J0131; J1100; J1170; J2250; J2270; J2405; J2795; J3010

== ENCOUNTER → 2022-09-24 08:59 | Outpatient (BNVA) | payer OTHER, MEDICAID, SELFPAY | PROVIDERS: PCP Internal Medicine; Visit Provider Surgery | DX: Z13.89 Encounter for screening for other disorder (principal) ==

== ENCOUNTER 2023-08-25 09:41 | Outpatient (AMB) | payer OTHER, MEDICAID, SELFPAY ==
[2023-08-25 09:41] VITALS: BP 120/70; PULSE 87; TEMP 36.7; O2SAT 99; BMI 30.6
--- NOTE | 2023-08-25 09:41 | MHC.OFFWIV ---
Intake Vital Signs 08/25/23 09:41 Height 5 ft 4 in Weight 178 lb BMI 30.6 BP 120/70 Blood Pressure Location Lt brachial Position Sitting Pulse 87 Pulse Source Pulse Oximeter Temp 98.0 F Temp Source Temporal Artery Scan Pulse Oximetry (%) 99 Oxygen Delivery Method Room Air Intake Visit Reasons: EP pain, burning when urinating Intake Note: pt is here today for pain burning when urinating started yesterday Patient Tobacco Use Status: Never used Tobacco Allergies No Known Allergies Allergy (Verified 08/25/23 10:06) Medication List - Last Reconciled 08/25/23 by VLADISLAV Durham phenazopyridine (Pyridium) 100 mg PO TID PRN sulfamethoxazole-trimethoprim 800-160 mg (Bactrim DS) 1 tab PO Q12H Do you need a note to return to daycare/school/sports/work: Yes HPI HPI Comments History of Present Illness Details Patient is a 37-year-old female in today for sick visit. She has no significant past medical history. She states that for the past day she has developed symptoms of burning while urination and increased frequency. She does state that she had episodes of chills last night and temporary lower back pain. Did not try any medication for relief. In office UA dipstick demonstrated UTI. [facility] Medical History Neck pain Class 1 obesity with body mass index (BMI) of 33.0 to 33.9 in adult Physical exam Surgical History S/P laparoscopic cholecystectomy (09/16/22) History of section Family History Mother Lupus Father Skin cancer Family/Other Mental health disorder Social History Housing: Apartment Alcohol intake: never Patient Tobacco Use Status: Never used Tobacco e-Cigarette/Vaping Use: Never Used Second Hand Smoke Exposure: No service: No Current occupational status: employed Current occupational exposures/hazards: No Cognitive needs: No Hearing needs: No Vision needs: No Review of Systems Const All systems reviewed & are unremarkable except as noted in HPI and below Reports as per HPI Musc Reports as per HPI Physical Exam Vital Signs: Last Vital Signs Temp 98.0 F 08/25/23 09:41 Pulse 87 08/25/23 09:41 BP 120/70 08/25/23 09:41 Pulse Ox 99 08/25/23 09:41 Oxygen Delivery Method Room Air 08/25/23 09:41 BMI result Body Mass Index 30.6 Vital signs reviewed stable. Const Other: Appearance: Alert.? Oriented X3.? No acute distress.? Head: Normocephalic, atraumatic CVS: Normal heart rate and rhythm.? Pulses normal.? Respiratory: No respiratory distress.? Breath sounds normal.? Abdomen: + Suprapubic tenderness? Back: No midline tenderness, no C-spine tenderness, full range of motion, + mild CVA tenderness bilaterally Neuro: Oriented X 3.? No motor deficit.? No sensory deficit. CN 2-12 intact Results AMB Urinalysis, Automated UA Leukoctes 15 Jordana/uL Last Edit by NINFA Castaneda on 08/25/23 09:55 UA Nitrite Negative Last Edit by Esthela Garner CCM on 08/25/23 09:55 UA Urobilinogen 0.2 mg/dL Last Edit by Esthela Garner CCM on 08/25/23 09:55 UA Protein 0 mg/dL Last Edit by Esthela Garner CCM on 08/25/23 09:55 UA pH 7.0 Last Edit by Esthela Garner CCM on 08/25/23 09:55 UA Blood 200 Abdias/uL Last Edit by Esthela Garner CCM on 08/25/23 09:55 UA Specific [place] 1.005 Last Edit by Esthela Garner CCM on 08/25/23 09:55 UA Ketone Negative Last Edit by NINFA Castaneda on 08/25/23 09:55 UA Bilirubin 0 mg/dL Last Edit by Esthela Garner CCM on 08/25/23 09:55 UA Glucose 0 mg/dL Last Edit by Esthela Garner CCM on 08/25/23 09:55 Results Reviewed Results Reviewed: Laboratory Last Values Urine pH (Auto) 7.0 08/25/23 09:54 Specific [place] (Auto) 1.005 08/25/23 09:54 Urine Protein (Auto) 0 mg/dL 08/25/23 09:54 Glucose (UA)(Auto) 0 mg/dL 08/25/23 09:54 Urine Ketones (Auto) Negative 08/25/23 09:54 Urine Blood (Auto) 200 Abdias/uL 08/25/23 09:54 Urine Nitrite (Auto) Negative 08/25/23 09:54 Urine Bilirubin (Auto) 0 mg/dL 08/25/23 09:54 Urine Urobilinogen (Auto) 0.2 mg/dL 08/25/23 09:54 Leukocyte Esterase (Auto) 15 Jordana/uL 08/25/23 09:54 Assessment & Plan Assessment & Plan (1) UTI (urinary tract infection): Comment: Patient will be given Bactrim, and peridium to be taken as directed. Patient has been educated on the side effects of these medications. Patient has been educated on signs of worsening symptoms and when to return back to the walk-in clinic or when to present to the emergency room. Code(s): N39.0 - Urinary tract infection, site not specified Qualifiers: Urinary tract infection type: site unspecified Hematuria presence: with hematuria Qualified Code(s): N39.0 - Urinary tract infection, site not specified; R31.9 - Hematuria, unspecified Plan: Take your medications as prescribed. If you were prescribed antibiotics today, it is important that you take your medication to their entirety, do not skip any doses, do not finish them early. Follow-up with your primary care provider this week. Return to the emergency department with new or worsening symptoms. Such as fevers, chills, chest pain, shortness of breath, nausea, vomiting, dizziness, headache, vision changes, lethargy In case of emergency call 911 Plan Follow-up PCP. Orders: Orders AMB Urinalysis Automated Today Z13.9 - Encounter for screening, unspecified Medications: New phenazopyridine (Pyridium) 100 mg PO TID PRN 14 tabs 0RF pain sulfamethoxazole-trimethoprim 800-160 mg (Bactrim DS) 1 tab PO Q12H 6 tabs 0RF Coding Level of Care Code Est Pt Level 3 (65856) Diagnoses Urinary tract infection with hematuria, site unspecified N39.0; R31.9 Urinary tract infection type: site unspecified Hematuria presence: with hematuria Time Spent (min) 21
== END 2023-08-25 10:30 | disposition home or self-care (01) ==
PROVIDERS: PCP Internal Medicine; Visit Provider Nurse Practitioner Primary Care
DX: N39.0 Urinary tract infection, site not specified (principal); R31.9 Hematuria, unspecified
CPT/HCPCS: 81003; 99213

== ENCOUNTER 2024-01-27 11:03 | Outpatient (AMB) | payer OTHER, MEDICAID, SELFPAY ==
[2024-01-27 11:11] VITALS: BP 110/70; BMI 31.8
--- NOTE | 2024-01-27 11:11 | MHC.PC.OV ---
Vital Signs 01/27/24 11:11 Height 5 ft 4 in Weight 185 lb BMI 31.8 BP 110/70 Blood Pressure Location Lt brachial Position Sitting Intake Visit Reasons: Physical Exam Intake Note: Patient here for a physical exam [employer] Required: No Accompanied by: Self / Same As Patient Allergies No Known Allergies Allergy (Verified 01/27/24 11:16) Medication List - Last Reconciled 01/27/24 by Khadra Tucker MD No Known Home Meds Tobacco use date assessed: 01/27/24 Dental Screening Dental Screen Date: 01/27/24 Did you have a dental visit in the last 12 months?: Yes Did you have a dental problem in the last 6 months where you did not have access to dental care?: No Was dental information given to patient?: Patient has dentist HPI HPI Comments History of Present Illness Details This is a 38-year-old female that comes for her physical exam. Pap smear done 2019. She complains of hair loss and neck pain that has been bothering her for few months. [facility] Medical History Neck pain Class 1 obesity with body mass index (BMI) of 33.0 to 33.9 in adult Physical exam Surgical History S/P laparoscopic cholecystectomy (09/16/22) History of section Family History Mother Lupus Father Skin cancer Family/Other Mental health disorder Social History Housing: Apartment Alcohol intake: never Patient Tobacco Use Status: Never used Tobacco e-Cigarette/Vaping Use: Never Used Second Hand Smoke Exposure: No service: No Current occupational status: employed Current occupational exposures/hazards: No Cognitive needs: No Hearing needs: No Vision needs: No Questionnaire PHQ-9 Over the last 2 weeks, how often have you been bothered by any of the following problems? 1. Little interest or pleasure in doing things: not at all 2. Feeling down, depressed, or hopeless: not at all 3. Trouble falling or staying asleep, or sleeping too much: not at all 4. Feeling tired or having little energy: not at all 5. Poor appetite or overeating: not at all 6. Feeling bad about yourself - or that you are a failure or have let yourself or your family down: not at all 7. Trouble concentrating on things, such as reading the newspaper or watching television: not at all 8. Moving or speaking so slowly that other people could have noticed. Or the opposite - being so fidgety or restless that you have been moving around a lot more than usual: not at all 9. Thoughts that you would be better off or of hurting yourself in some way: not at all Total score: 0 Depression Screening Interpretation: Negative Depression Screening Done: Yes 17135 - PHQ-9 Billing: Yes Source: Developed by Drs. Vinny Diego, Dee Larios, Chance Marcano and colleagues, with an educational mary kay from [employer]. Thrive Questionnaire Date Thrive assessed: 01/27/24 I am a: Patient What is your living situation today?: I have a steady place to live Within the past 12 months, did the food you bought not last and you didn't have the money to get more?: Never true Within the past 12 months, did you worry whether your food would run out before you got money to buy more?: Never true Do you have trouble paying for medicines?: No Do you have trouble getting transportation to medical appointments?: No Do you have trouble paying your heating and electricity bill?: No Do you have trouble taking care of your child, family member or friend?: No Do you have trouble with day-to-day activities such as bathing, preparing meals, shopping, managing finances, etc.?: No Are you currently unemployed and looking for a job?: No Are you interested in more education?: No Please select the resources that you would like help with: None Currently or been in a relationship where the following occur: No concerns reported THRIVE Score: 0 AUDIT C Alcohol Use Questionnaire (AUDIT-C) 1. How often do you have a drink containing alcohol?: Never Total Score: 0 Score Reviewed/Action Taken: No PATY-7 AMB Questionnaire PATY-7 Date PATY - 7 assessed: 01/27/24 Feeling nervous, anxious, or on edge: 0 = Not at all Not being able to stop or control worryin = Not at all Worrying too much about different things: 0 = Not at all Trouble relaxin = Not at all Being so restless that it is hard to sit still: 0 = Not at all Becoming easily annoyed or irritable: 0 = Not at all Feeling afraid as if something awful might happen: 0 = Not at all Total PATY-7 score (0-4 normal; 5-9 mild; 10-14 moderate; 15-21 severe): 0 Source: Developed by Drs. Vinny Diego, Dee Larios, Chance Marcano and colleagues, with an educational mary kay from [employer]. PATY-7 Assessment Billing PATY-7 Assessment Tool: PATY-7 Assessment 78484 Review of Systems Const All systems reviewed & are unremarkable except as noted in HPI and below Card Denies chest pain at rest, Denies chest pain with activity, Denies edema, Denies irregular heart rhythm, Denies claudication, Denies dyspnea, Denies dyspnea on exertion, Denies orthopnea, Denies paroxysmal nocturnal dyspnea and Denies slow heart rate Resp Denies cough, Denies dyspnea and Denies dyspnea on exertion GI Denies abdominal pain, Denies change in bowel habits, Denies excessive flatus, Denies nausea and Denies vomiting Denies urinary incontinence, Denies urinary hesitancy and Denies urinary urgency Musc Denies abnormal gait, Denies atrophy, Denies deformity and Denies limited range of motion Skin/Breast Denies bleeding lesions, Denies changing lesions and Denies rash Neuro Denies abnormal gait, Denies behavioral changes and Denies lack of coordination Psych Denies behavioral changes Physical exam (Primary Care) Vital Signs: Last Vital Signs BP 110/70 01/27/24 11:11 BMI result Body Mass Index 31.8 BMI Assessment/Plan discussion: High BMI High, discussed plan: lifestyle, weight reduction, dietary and physical activity Tobacco/Smoking Status: Tobacco use Status Tobacco use date assessed 01/27/24 01/27/24 11:14 Patient Tobacco Use Status Never used Tobacco 01/27/24 11:14 e-Cigarette/Vaping Use Never Used 01/27/24 11:14 PHQ-9: PHQ-9 Score PHQ-9: Total score 0 01/27/24 11:19 Depression Screening Interpretation: Negative Thrive Assessment: Date of Thrive Assessment Date Thrive assessed 01/27/24 01/27/24 11:16 Currently or been in a relationship where the following occur: No concerns reported [facility] Head: Yes normal to inspection, Yes normocephalic and Yes atraumatic Ears: external ears normal Eyes General: appearance normal, both eyes and all related structures Eyelids: Yes eyelids normal Conjunctivae: conjunctivae normal Neck Neck: Yes normal visual inspection and Yes supple Resp Effort & Inspection: normal respiratory effort Auscultation: clear to auscultation bilaterally Cardio Jugular venous distension: no JVD Rate: regular rate Rhythm: regular rhythm Heart sounds: S1 normal heart sound present and S2 normal heart sound present GI Inspection: Yes normal to inspection Palpation (GI): Soft to palpation and nontender Auscultation: normal bowel sounds Skin General skin exam: no rashes or lesions noted Neuro General: no focal motor deficits Extrem General: Yes full ROM Psych Appearance: grossly normal Assessment and Plan Assessment & Plan (1) Physical exam: Code(s): Z00.00 - Encounter for general adult medical examination without abnormal findings Plan: Repeat in a year. (2) Neck pain: Code(s): M54.2 - Cervicalgia Plan: Start physical therapy. (3) Hair loss: Code(s): L65.9 - Nonscarring hair loss, unspecified Plan: Referred to dermatology. Orders: Orders Complete Blood Count Auto Diff Today D64.9 - Anemia, unspecified IRON PROFILE Today D64.9 - Anemia, unspecified Comprehensive [place]. Panel Fast Today Z00.00 - Encounter for general adult medical examination without abnormal findings Thyroid Stimulating Hormone Today L65.9 - Nonscarring hair loss, unspecified Lipid Panel Today Z00.00 - Encounter for general adult medical examination without abnormal findings PT Evaluation and Treatment Today M54.2 - Cervicalgia Referrals Dermatology Referral L65.9 - Nonscarring hair loss, unspecified Coding Level of Care Code Est Pt Level 3 (43631) Est Pt Prev Care 18-39y(15158) Diagnoses Physical exam Z00.00 Neck pain M54.2 Hair loss L65.9 Additional Codes PATY-7 Assessment Billing - PATY-7 Assessment Tool: PATY-7 Assessment 07535 ([id number]) Time Spent (min) 33
== END 2024-01-27 11:24 | disposition home or self-care (01) ==
PROVIDERS: PCP Internal Medicine; Visit Provider Internal Medicine
DX: Z00.00 Encounter for general adult medical examination without abnormal findings (principal); M54.2 Cervicalgia; L65.9 Nonscarring hair loss, unspecified
CPT/HCPCS: 99213; 99395

== ENCOUNTER 2024-09-15 11:29 | Outpatient (AMB) | payer BC, SELFPAY ==
[2024-09-15 11:32] VITALS: BP 126/70; PULSE 96; RESP 16; TEMP 36.8; O2SAT 99; BMI 32.7
--- NOTE | 2024-09-15 11:32 | MHC.PC.OV ---
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: No Accompanied by: Self / Same As Patient Allergies No Known Allergies Allergy (Verified 09/15/24 11:45) Medication List - Last Reconciled 09/15/24 by TABITHA Valdez albuterol sulfate 90 mcg/actuation 2 puffs inhalation Q4-6H PRN Tobacco use date assessed: 09/15/24 Dental Screening Dental Screen Date: 09/15/24 Did you have a dental visit in the last 12 months?: No Did you have a dental problem in the last 6 months where you did not have access to dental care?: No Was dental information given to patient?: Patient has dentist HPI asthma HPI Details The patient is 38 year old female presenting with concern of asthma Reports that she had asthma a child and it is resurfacing now reports that she is using her rescue inhaler every 4hours at time She is also using another family member nebulizer treatment she reports coughing, sob, wheezing, chest tightness intermittently The patient went to the urgent care on 09/01/24 and was given benzonatate 200 mg for cough and albuterol rescue inhaler Patient symptoms are unchanged. Reports new pet dog and hx of being allergic to her cat The patient has heart burn very infrequent. Denies sick contact, she was the first one in her household to be sick . [facility] Medical History Neck pain Class 1 obesity with body mass index (BMI) of 33.0 to 33.9 in adult Physical exam Surgical History S/P laparoscopic cholecystectomy (09/16/22) History of section Family History Mother Lupus Father Skin cancer Family/Other Mental health disorder Social History Housing: Apartment Alcohol intake: never Patient Tobacco Use Status: Never used Tobacco e-Cigarette/Vaping Use: Never Used Second Hand Smoke Exposure: No service: No Current occupational status: employed Current occupational exposures/hazards: No Cognitive needs: No Hearing needs: No Vision needs: No Questionnaire PHQ-9 Over the last 2 weeks, how often have you been bothered by any of the following problems? 1. Little interest or pleasure in doing things: not at all 2. Feeling down, depressed, or hopeless: not at all 3. Trouble falling or staying asleep, or sleeping too much: not at all 4. Feeling tired or having little energy: not at all 5. Poor appetite or overeating: not at all 6. Feeling bad about yourself - or that you are a failure or have let yourself or your family down: not at all 7. Trouble concentrating on things, such as reading the newspaper or watching television: not at all 8. Moving or speaking so slowly that other people could have noticed. Or the opposite - being so fidgety or restless that you have been moving around a lot more than usual: not at all 9. Thoughts that you would be better off or of hurting yourself in some way: not at all Total score: 0 Depression Screening Interpretation: Negative Depression Screening Done: Yes 59868 - PHQ-9 Billing: Yes Source: Developed by Drs. Vinny Diego, Dee Larios, Chance Marcano and colleagues, with an educational mary kay from [employer]. Thrive Questionnaire Date Thrive assessed: 09/15/24 I am a: Patient What is your living situation today?: I have a steady place to live Within the past 12 months, did the food you bought not last and you didn't have the money to get more?: Never true Within the past 12 months, did you worry whether your food would run out before you got money to buy more?: Never true Do you have trouble paying for medicines?: No Do you have trouble getting transportation to medical appointments?: No Do you have trouble paying your heating and electricity bill?: No Do you have trouble taking care of your child, family member or friend?: No Do you have trouble with day-to-day activities such as bathing, preparing meals, shopping, managing finances, etc.?: No Are you currently unemployed and looking for a job?: No Are you interested in more education?: No Please select the resources that you would like help with: None Currently or been in a relationship where the following occur: No concerns reported THRIVE Score: 0 AUDIT C Alcohol Use Questionnaire (AUDIT-C) 1. How often do you have a drink containing alcohol?: Never Total Score: 0 Score Reviewed/Action Taken: No PATY-7 AMB Questionnaire PATY-7 Date PATY - 7 assessed: 09/15/24 Feeling nervous, anxious, or on edge: 0 = Not at all Not being able to stop or control worryin = Not at all Worrying too much about different things: 0 = Not at all Trouble relaxin = Not at all Being so restless that it is hard to sit still: 0 = Not at all Becoming easily annoyed or irritable: 0 = Not at all Feeling afraid as if something awful might happen: 0 = Not at all Total PATY-7 score (0-4 normal; 5-9 mild; 10-14 moderate; 15-21 severe): 0 Source: Developed by Drs. Vinny Diego, Dee Larios, Chance Marcano and colleagues, with an educational mary kay from [employer]. PATY-7 Assessment Billing PATY-7 Assessment Tool: PATY-7 Assessment 18010 ACT Questionnaire In the past 4 weeks, how much of the time did your asthma keep you from getting as much done at work, school or at home?: Most of the time During the past 4 weeks, how often have you had shortness of breath?: More than once a day During the past 4 weeks, how often did your asthma symptoms wake you up at night or earlier than usual in the morning?: 4 or more nights a week During the past 4 weeks, how often have you had to use your rescue inhaler or nebulizer medication?: More than 3 times per day How would you rate your asthma control during the past 4 weeks?: Somewhat controlled ACT Interpretation: Positive Score: 8 Review of Systems ENT Reports nasal congestion and Denies sore throat Card Denies chest pain, Denies leg edema, Denies lightheadedness, Reports dyspnea and Reports dyspnea on exertion (describes as chest tightness) Resp Reports cough, Denies hemoptysis, Reports dyspnea, Reports dyspnea on exertion (describes as chest tightness) and Reports wheezing GI Denies abdominal pain, Denies melena, Denies constipation, Denies diarrhea and Denies vomiting Denies urinary frequency, Denies dysuria and Denies urinary urgency Aller/Immun Reports wheezing Physical exam (Primary Care) Vital Signs: Last Vital Signs Temp 98.2 F 09/15/24 11:32 Pulse 96 09/15/24 11:32 Resp 16 09/15/24 11:32 BP 126/70 09/15/24 11:32 Pulse Ox 99 09/15/24 11:32 Oxygen Delivery Method Room Air 09/15/24 11:32 BMI result Body Mass Index 32.7 Tobacco/Smoking Status: Tobacco use Status Tobacco use date assessed 09/15/24 09/15/24 11:41 Patient Tobacco Use Status Never used Tobacco 09/15/24 11:41 e-Cigarette/Vaping Use Never Used 09/15/24 11:41 PHQ-9: PHQ-9 Score PHQ-9: Total score 0 09/15/24 12:12 Depression Screening Interpretation: Negative Thrive Assessment: Date of Thrive Assessment Date Thrive assessed 09/15/24 09/15/24 11:41 Currently or been in a relationship where the following occur: No concerns reported Const General: healthy appearing, no acute distress, alert and awake Nutritional Appearance: well nourished HENMT Ears: TM's normal bilaterally General nose exam: Abnormal mucous membranes and turbinates present boggy and erythematous and Nasal discharge present purulent on the right Eyes Conjunctivae: conjunctivae normal Sclerae: sclerae normal Neck Neck: Yes no lymphadenopathy and Yes no JVD Thyroid: Thyroid normal Carotids: no bruits Resp Effort & Inspection: normal respiratory effort, able to speak in complete sentences, Actively coughing Quality: dry, not tachypneic and uses accessory muscles Auscultation: no crackles, no rales, no rhonchi and no wheezes Cardio Rate: regular rate Rhythm: regular rhythm Heart sounds: no murmurs and normal S1 and S2 GI Palpation (GI): Soft to palpation, nontender, no hepatomegaly and no splenomegaly Auscultation: normal bowel sounds Coding Level of Care Code Tele Est Pt Level 4 (33503) Diagnoses Rhinosinusitis J32.9 Upper respiratory tract infection, unspecified type J06.9 URI type: unspecified URI Asthma, unspecified asthma severity, unspecified whether complicated, unspecified whether persistent J45.909 Asthma severity: unspecified severity Asthma persistence: unspecified Asthma complication type: unspecified Chronic cough R05.3 Cough type: chronic Additional Codes Asthma Control Questionnaire - ACT Interpretation: Positive ([id number]) PATY-7 Assessment Billing - PATY-7 Assessment Tool: PATY-7 Assessment 72729 ([id number]) PHQ-9 - 15534 - PHQ-9 Billing: Yes ([id number]) Time Spent (min) 38 Assessment & Plan Assessment & Plan (1) Rhinosinusitis: Code(s): J32.9 - Chronic sinusitis, unspecified Category: Medical Plan: Augmentin 875-125 mg 1 tab p.o. b.i.d. times 10 days and prednisone taper the ordered Increase p.o. fluids and avoid triggers. Patient refused nose spray-dislike things touching her nose (2) Upper respiratory infection: Code(s): J06.9 - Acute upper respiratory infection, unspecified Category: Medical Qualifiers: URI type: unspecified URI Qualified Code(s): J06.9 - Acute upper respiratory infection, unspecified Plan: Augmentin 875-125 mg bid x 10 days and prednisone tapered (3) Asthma: Code(s): J45.909 - Unspecified asthma, uncomplicated Category: Medical Qualifiers: Asthma severity: unspecified severity Asthma persistence: unspecified Asthma complication type: unspecified Qualified Code(s): J45.909 - Unspecified asthma, uncomplicated Plan: Childhood asthma without any incident as an adult prior. New pet dog, considering allergic reaction due to history allergic to her cat. Reports that the dog is constantly shedding and she has to sweep up the floor two a day at times. Encouraged the patient to wear a mask while during sweeping up the floor. Breo Ellipta inhaler ordered, continue albuterol rescue inhaler-will refer the patient to pulmonology to further evaluate (4) Cough: Code(s): R05.9 - Cough, unspecified Category: Medical Qualifiers: Cough type: chronic Qualified Code(s): R05.3 - Chronic cough Plan: Seems to be allergy related-benzonatate 200 mg po TID PRN ordered. Plan Contact office if symptoms are not relenting or worsens Orders: Referrals Pulmonology Referral J45.909 - Unspecified asthma, uncomplicated Medications: New amoxicillin-pot clavulanate 875-125 mg 1 tab PO BID 10 days 20 tabs 0RF J06.9 - Acute upper respiratory infection, unspecified benzonatate 200 mg PO TID PRN 60 caps 0RF cough prednisone see taper instructions take 4 tabs x 2 days, then 3 tabs x 2 days, 2 tab x 2 days, then 1 tab x 2 days = 20 tabs for 8 days 10 mg PO DIRECTED 20 tabs 0RF J32.9 - Chronic sinusitis, unspecified fluticasone furoate-vilanterol 100-25 mcg/dose (Breo Ellipta) 1 inh inhalation DAILY 60 ea 2RF J45.909 - Unspecified asthma, uncomplicated
== END 2024-09-15 12:16 | disposition home or self-care (01) ==
LOC: HO.HMCH 11:30
PROVIDERS: PCP Internal Medicine
DX: J32.9 Chronic sinusitis, unspecified (principal); J06.9 Acute upper respiratory infection, unspecified; J45.909 Unspecified asthma, uncomplicated; R05.3 Chronic cough

== ENCOUNTER → 2024-09-15 11:29 | Outpatient (BNVA) | payer BC, SELFPAY | PROVIDERS: PCP Internal Medicine | DX: J32.9 Chronic sinusitis, unspecified (principal); J06.9 Acute upper respiratory infection, unspecified; J45.909 Unspecified asthma, uncomplicated; R05.3 Chronic cough | CPT/HCPCS: 96127; 96160 ==

== ENCOUNTER 2025-01-31 07:02 | Outpatient (REF) | payer BC, SELFPAY ==
--- OUTSIDE RECORDS SUMMARY | 2025-01-31 07:04 | XMS_ITS ---
[facility] Organization Unknown Care Team Organization Name Specialty Phone Email Start Date End [facility] NULL Primary Care 04/22/2022 02/01/2024
[2025-01-31 07:18] LABS: MANUAL DIFF FLAG NO
[2025-01-31 08:15] LABS: Hematocrit 35.5 % (37.0-47.0); Hemoglobin 11.8 g/dl (12.0-16.0); Imm Gran Abs Auto 0.01 X10*3/uL (0.00-0.03); Imm Gran Pct Auto 0.2 % (0.0-0.4); Lymphocytes Absolute Auto 1.6 X10*3/uL (1.2-4.9); Mean Corpuscular HGB Conc 33.2 g/dl (31.0-35.0); Mean Corpuscular Hemoglobin 28.5 pg (27.0-33.0); Mean Corpuscular Volume 85.7 fL (80.0-98.0); NRBC Abs Auto 0.000 X10*3/uL (0.0-0.012); NRBC Pct Auto 0.0 /100WBC (0.0-0.2); Platelet Count 246 X10*3/uL (160-400); Red Blood Count 4.14 X10*6/uL (4.20-5.50); White Blood Count 4.6 X10*3/uL (4.8-10.8)
[2025-01-31 08:51] LABS: Alanine Aminotransferase 17 U/L (0-31); Albumin Level 4.4 g/dL (3.5-5.0); Alkaline Phosphatase 62 U/L (39-117); Anion Gap 12 (12-20); Aspartate Amino Transferase 23 U/L (5-31); Blood Urea Nitrogen 7 mg/dL (9-16); Calcium 8.8 mg/dL (8.4-10.2); Carbon Dioxide 23 mmol/L (22-29); Chloride 108 mmol/L (96-108); Cholesterol 138 mg/dL (<200); Estimated Glomerular Filt Rate > 60; HDL Cholesterol 38 mg/dL (>40); Iron 30 mcg/dL (30-160); Percent Iron Saturation 9 % (15-50); Potassium 3.9 mmol/L (3.3-5.1); Sodium 139 mmol/L (135-145); Total Iron Binding Capacity 332 mcg/dL (228-428); Total Protein 7.3 g/dL (6.5-8.0); Triglycerides 108 mg/dL (<150); Unsaturated Iron Binding 302 ug/dL
[2025-01-31 09:10] LABS: Folate 6.7 ng/mL (> or = 4.0); Vitamin B12 328 pg/mL (200-900)
== END 2025-01-31 07:03 | disposition home or self-care (01) ==
LOC: HO.LAB 07:02
PROVIDERS: PCP Internal Medicine; Visit Provider Internal Medicine
DX: E53.8 Deficiency of other specified B group vitamins (principal); E78.5 Hyperlipidemia, unspecified; D64.9 Anemia, unspecified; J45.909 Unspecified asthma, uncomplicated; E55.9 Vitamin D deficiency, unspecified
CPT/HCPCS: 36415; 80053; 80061; 82306; 82607; 82746; 83540; 85025

== ENCOUNTER 2025-02-01 10:27 | Outpatient (AMB) | payer BC, SELFPAY ==
[2025-02-01 10:30] VITALS: BP 106/90; PULSE 98; RESP 18; TEMP 36.4; O2SAT 97; BMI 33.0
--- NOTE | 2025-02-01 10:30 | MHC.PC.OV ---
Vital Signs 02/01/25 10:30 Height 5 ft 4 in Weight 192 lb BMI 33.0 BP 106/90 H Blood Pressure Location Lt brachial Position Sitting Respiration 18 Pulse 98 Pulse Source Pulse Oximeter Temp 97.5 F Temp Source Temporal Artery Scan Pulse Oximetry (%) 97 Oxygen Delivery Method Room Air Intake Visit Reasons: annual Hospitality Internship Required: No Accompanied by: Self / Same As Patient Allergies No Known Allergies Allergy (Verified 02/01/25 10:48) Medication List - Last Reconciled 02/01/25 by Khadra Tucker MD albuterol sulfate 90 mcg/actuation 2 puffs inhalation Q4-6H PRN fluticasone furoate-vilanterol 100-25 mcg/dose (Breo Ellipta) 1 inh inhalation DAILY Tobacco use date assessed: 02/01/25 Dental Screening Dental Screen Date: 02/01/25 Did you have a dental visit in the last 12 months?: Yes Did you have a dental problem in the last 6 months where you did not have access to dental care?: No Was dental information given to patient?: Patient has dentist HPI HPI Comments History of Present Illness Details The patient is a 39-year-old female presenting for a routine follow-up and management of chronic conditions. The patient has a history of elevated blood glucose levels, with a recent measurement of 118 mg/dL, indicating prediabetes. She has been advised to monitor her diet, particularly reducing sugar intake, and to engage in portion control. The patient reports a family history of anemia, which she is concerned about due to her mother's and [id number]'s experiences. Her hemoglobin level is slightly low at 11.8 g/dL, and she has been advised to increase her intake of iron-rich foods such as meat and beans. The patient has a vitamin D level of 25.9 ng/mL, which is below the normal range, and she has been prescribed vitamin D supplements. The patient has a family history of lupus, which necessitates monitoring of her white blood cell count, currently at 4.6 x 10^9/L. Her white blood cell count is slightly below the normal range, but not alarmingly low. [facility] Medical History (Updated 02/01/25 @ 11:03 by Khadra Tucker MD) Neck pain Class 1 obesity with body mass index (BMI) of 33.0 to 33.9 in adult Physical exam Surgical History S/P laparoscopic cholecystectomy (09/16/22) History of section Family History Mother Lupus Father Skin cancer Family/Other Mental health disorder Social History Housing: Apartment Alcohol intake: never Patient Tobacco Use Status: Never used Tobacco e-Cigarette/Vaping Use: Never Used Second Hand Smoke Exposure: No service: No Current occupational status: employed Current occupational exposures/hazards: No Cognitive needs: No Hearing needs: No Vision needs: No Questionnaire PHQ-9 Over the last 2 weeks, how often have you been bothered by any of the following problems? 1. Little interest or pleasure in doing things: not at all 2. Feeling down, depressed, or hopeless: not at all 3. Trouble falling or staying asleep, or sleeping too much: not at all 4. Feeling tired or having little energy: several days 5. Poor appetite or overeating: not at all 6. Feeling bad about yourself - or that you are a failure or have let yourself or your family down: not at all 7. Trouble concentrating on things, such as reading the newspaper or watching television: not at all 8. Moving or speaking so slowly that other people could have noticed. Or the opposite - being so fidgety or restless that you have been moving around a lot more than usual: not at all 9. Thoughts that you would be better off or of hurting yourself in some way: not at all Total score: 1 Depression Screening Interpretation: Negative Depression Screening Done: Yes 48785 - PHQ-9 Billing: Yes Source: Developed by Drs. Vinny Diego, Dee Larios, Chance Marcano and colleagues, with an educational mary kay from [employer]. Thrive Questionnaire Date Thrive assessed: 02/01/25 I am a: Patient What is your living situation today?: I have a steady place to live Within the past 12 months, did the food you bought not last and you didn't have the money to get more?: Never true Within the past 12 months, did you worry whether your food would run out before you got money to buy more?: Never true Do you have trouble paying for medicines?: No Do you have trouble getting transportation to medical appointments?: No Do you have trouble paying your heating and electricity bill?: No Do you have trouble taking care of your child, family member or friend?: No Do you have trouble with day-to-day activities such as bathing, preparing meals, shopping, managing finances, etc.?: No Are you currently unemployed and looking for a job?: Yes Are you interested in more education?: No Please select the resources that you would like help with: None Currently or been in a relationship where the following occur: No concerns reported THRIVE Score: 0 AUDIT C Alcohol Use Questionnaire (AUDIT-C) 1. How often do you have a drink containing alcohol?: Never Total Score: 0 Score Reviewed/Action Taken: No PATY-7 AMB Questionnaire PATY-7 Date PATY - 7 assessed: 02/01/25 Feeling nervous, anxious, or on edge: 0 = Not at all Not being able to stop or control worryin = Not at all Worrying too much about different things: 0 = Not at all Trouble relaxin = Not at all Being so restless that it is hard to sit still: 0 = Not at all Becoming easily annoyed or irritable: 0 = Not at all Feeling afraid as if something awful might happen: 0 = Not at all Total PATY-7 score (0-4 normal; 5-9 mild; 10-14 moderate; 15-21 severe): 0 Source: Developed by Drs. Vinny Diego, Dee Larios, Chance Marcano and colleagues, with an educational mary kay from [employer]. PATY-7 Assessment Billing PATY-7 Assessment Tool: PATY-7 Assessment 21861 Review of Systems Const All systems reviewed & are unremarkable except as noted in HPI and below Card Denies chest pain at rest, Denies chest pain with activity, Denies edema, Denies irregular heart rhythm, Denies claudication, Denies dyspnea, Denies dyspnea on exertion, Denies orthopnea, Denies paroxysmal nocturnal dyspnea and Denies slow heart rate Resp Denies cough, Denies dyspnea and Denies dyspnea on exertion Physical exam (Primary Care) Vital Signs: Last Vital Signs Temp 97.5 F 02/01/25 10:30 Pulse 98 02/01/25 10:30 Resp 18 02/01/25 10:30 BP 106/90 H 02/01/25 10:30 Pulse Ox 97 02/01/25 10:30 Oxygen Delivery Method Room Air 02/01/25 10:30 BMI result Body Mass Index 33.0 BMI Assessment/Plan discussion: High BMI High, discussed plan: lifestyle, weight reduction, dietary and physical activity Tobacco/Smoking Status: Tobacco use Status Tobacco use date assessed 02/01/25 02/01/25 10:36 Patient Tobacco Use Status Never used Tobacco 02/01/25 10:36 e-Cigarette/Vaping Use Never Used 02/01/25 10:36 PHQ-9: PHQ-9 Score PHQ-9: Total score 1 02/01/25 10:52 Depression Screening Interpretation: Negative Thrive Assessment: Date of Thrive Assessment Date Thrive assessed 02/01/25 02/01/25 10:36 Currently or been in a relationship where the following occur: No concerns reported [facility] Head: Yes normal to inspection, Yes normocephalic and Yes atraumatic Ears: external ears normal Eyes General: appearance normal, both eyes and all related structures Eyelids: Yes eyelids normal Conjunctivae: conjunctivae normal Neck Neck: Yes normal visual inspection and Yes supple Resp Effort & Inspection: normal respiratory effort Auscultation: clear to auscultation bilaterally Cardio Jugular venous distension: no JVD Rate: regular rate Rhythm: regular rhythm Heart sounds: S1 normal heart sound present and S2 normal heart sound present GI Inspection: Yes normal to inspection Palpation (GI): Soft to palpation and nontender Auscultation: normal bowel sounds Skin General skin exam: no rashes or lesions noted Neuro General: no focal motor deficits Extrem General: Yes full ROM Psych Appearance: grossly normal Coding Level of Care Code Est Pt Prev Care 18-39y(78246) Diagnoses Physical exam Z00.00 Additional Codes PATY-7 Assessment Billing - PATY-7 Assessment Tool: PATY-7 Assessment 90677 ([id number]) PHQ-9 - 59192 - PHQ-9 Billing: Yes ([id number]) Time Spent (min) 31 Assessment & Plan Assessment & Plan (1) Physical exam: Code(s): Z00.00 - Encounter for general adult medical examination without abnormal findings Category: Medical Plan The patient will be monitored for prediabetes with a focus on dietary modifications, including reducing sugar intake and practicing portion control. Vitamin D supplementation has been prescribed to address the deficiency, and the patient is advised to increase the intake of iron-rich foods to manage anemia. A follow-up appointment is scheduled in six months to reassess blood glucose, hemoglobin, and white blood cell counts. The patient will receive a tetanus vaccination during the next visit. Patient was informed and verbally consented to the use of an ambient scribe for clinic note documentation during this visit. Orders: Orders Complete Blood Count Auto Diff 6 Months D64.9 - Anemia, unspecified Comprehensive [place]. Panel Fast 6 Months R73.02 - Impaired glucose tolerance (oral) IRON PROFILE 6 Months D64.9 - Anemia, unspecified Medications: New cholecalciferol (vitamin D3) 25 mcg PO DAILY 90 caps 1RF 90 days E67.3 - Hypervitaminosis D fluticasone propion-salmeterol 100-50 mcg/dose ([employer] Inhub) 1 inh inhalation BID 60 ea 0RF 30 days J45.40 - Moderate persistent asthma, uncomplicated Changed From albuterol sulfate 90 mcg/actuation 2 puffs inhalation Q4-6H PRN To albuterol sulfate 90 mcg/actuation 2 puffs inhalation Q4-6H PRN 8.5 grams 0RF bronchospasm 30 days Discontinued fluticasone furoate-vilanterol 100-25 mcg/dose (Breo Ellipta) Discontinued Reason: Patient Completed Course 1 inh inhalation DAILY 60 ea 2RF J45.909 - Unspecified asthma, uncomplicated
== END 2025-02-01 11:06 | disposition home or self-care (01) ==
LOC: HO.HMCH 10:27
PROVIDERS: PCP Internal Medicine; Visit Provider Internal Medicine
DX: Z00.00 Encounter for general adult medical examination without abnormal findings (principal)

== ENCOUNTER → 2025-02-01 10:27 | Outpatient (BNVA) | payer BC, SELFPAY | PROVIDERS: PCP Internal Medicine; Visit Provider Internal Medicine | DX: Z00.00 Encounter for general adult medical examination without abnormal findings (principal); D64.9 Anemia, unspecified; R73.02 Impaired glucose tolerance (oral); J45.40 Moderate persistent asthma, uncomplicated; E67.3 Hypervitaminosis D; J45.909 Unspecified asthma, uncomplicated | CPT/HCPCS: 96127 ==